=== PATIENT | male | born 1945 | race Caucasian/White ===

== ENCOUNTER 2023-05-05 02:16 | Emergency (ER) | payer MEDICARE, OTHER ==
[~2023-05-05] VITALS: Ht 175.3 cm; Wt 81.6 kg
[2023-05-05 02:28] VITALS: O2SAT 97
[2023-05-05] MEDS ORDERED: ASPIRIN 81 MG TAB.CHEW ONE (02:37)
[2023-05-05] MEDS ORDERED: METF-440 PO (02:41)
[2023-05-05] MEDS ORDERED: ATOR10TA PO (02:41)
[2023-05-05] MEDS ORDERED: LAMO25TA5 PO (02:41)
[2023-05-05] MEDS ORDERED: PANT20TA17 PO (02:41)
[2023-05-05] MEDS ORDERED: BUPR200T2 PO (02:41)
[2023-05-05 02:44] LABS: BASOPHILS # (AUTO) 0.1 K/UL (0.0-0.2); BASOPHILS % (AUTO) 0.9 % (0.0-2.0); EOSINOPHILS # (AUTO) 0.3 K/uL (0.0-0.7); EOSINOPHILS % (AUTO) 3.2 % (0.0-7.0); HEMATOCRIT 43.4 % (36.7-47.1); HEMOGLOBIN 14.8 g/dL (12.5-16.3); LYMPHOCYTES # (AUTO) 2.5 K/uL (0.8-4.8); LYMPHOCYTES % (AUTO) 27.6 % (20.5-51.5); MEAN CORPUSCULAR HEMOGLOBIN 29.1 uug (23.8-33.4); MEAN CORPUSCULAR HGB CONC 34 g/dL (32.5-36.3); MEAN CORPUSCULAR VOLUME 85.6 fL (73.0-96.2); MONOCYTES # (AUTO) 0.9 K/uL (0.1-1.30); MONOCYTES % (AUTO) 10.4 % (0.0-11.0); NEUTROPHILS # (AUTO) 5.3 K/uL (1.8-8.9); NEUTROPHILS % (AUTO) 57.9 % (38.5-71.5); PLATELET COUNT (AUTO) 517 K/uL (152-348); RED BLOOD CELL COUNT(AUTO) 5.08 MIL/uL (4.06-5.63); RED CELL DISTRIBUTION WIDTH 14.8 % (12.1-16.2); WHITE BLOOD COUNT (AUTO) 9.1 K/uL (3.6-10.2)
[2023-05-05] MEDS ORDERED: ASPIRIN 81 MG TAB.CHEW PO ONE (02:45)
[2023-05-05 02:48] LABS: DIFFERENTIAL COMMENT 1
[2023-05-05] MEDS ORDERED: CLOPIDOGREL 75 MG TABLET PO ONE (03:00)
[2023-05-05] MEDS ORDERED: HEPARIN SODIUM,PORCINE/PF 100 UNIT/ML, 5ML SYR IV ONE (03:00)
[2023-05-05 03:10] LABS: CALCIUM 9.2 mg/dL (8.5-10.1); CARBON DIOXIDE 30 mmol/L (21-32); CHLORIDE 101 mmol/L (98-107); GLUCOSE 166 mg/dL (74-106); POTASSIUM 3.9 mmol/L (3.5-5.1); SODIUM SERUM 137 mmol/L (136-145); UREA NITROGEN, BLOOD 21 mg/dL (7-18)
[2023-05-05] MEDS ORDERED: HEPARIN SODIUM,PORCINE 5,000 UNITS/ML VIAL ONE (03:10)
[2023-05-05] MEDS ORDERED: CLOPIDOGREL 75 MG TABLET ONE (03:10)
[2023-05-05 03:23] LABS: ALANINE AMINOTRANSFERASE 43 U/L (16-63); ALBUMIN 3.6 g/dL (3.4-5.0); ALKALINE PHOSPHATASE 113 U/L (50-136); ASPARTATE AMINOTRANSFERASE 19 U/L (15-37); BILIRUBIN,DIRECT 0.1 mg/dL (0.0-0.2); BILIRUBIN,TOTAL 0.3 mg/dL (0.2-1.0); NT-PRO BNP 415 pg/mL (0-125); TOTAL PROTEIN, SERUM 7.2 g/dL (6.4-8.2)
== END 2023-05-05 03:50 | disposition short-term general hospital (02) ==
LOC: ER 02:29
DX: I21.3 ST elevation (STEMI) myocardial infarction of unspecified site (principal); E78.5 Hyperlipidemia, unspecified; E11.9 Type 2 diabetes mellitus without complications; Z88.8 Allergy status to other drugs, medicaments and biological substances; Z88.1 Allergy status to other antibiotic agents; Z79.84 Long term (current) use of oral hypoglycemic drugs; Z79.899 Other long term (current) drug therapy
CPT/HCPCS: 99291; 96374; 80076; 80048; 83880; 83735; 85025; 85379; 85730; 84484; 36415; 93005; 71045; J1644; A4663